=== PATIENT | female | born 1950 | race Two or more races ===

== ENCOUNTER 2024-02-17 14:54 | Outpatient (CLI) | payer OTHER | END 2024-02-17 15:04 | disposition home or self-care (01) | LOC: RAD 14:54 | DX: M17.11 Unilateral primary osteoarthritis, right knee (principal) ==

== ENCOUNTER 2024-02-22 14:54 | Outpatient (CLI) | payer OTHER | END 2024-02-22 15:03 | disposition home or self-care (01) | LOC: SONOGRAMA 14:54 | PROVIDERS: ATTEND Orthopaedic Surgery | DX: M75.121 Complete rotator cuff tear or rupture of right shoulder, not specified as traumatic (principal) ==